=== PATIENT | female | born 1965 | race Caucasian/White ===

== ENCOUNTER 2018-01-28 05:16 | Emergency (ER) | payer SELFPAY ==
[~2018-01-28] VITALS: Ht 157.5 cm; Wt 98.0 kg
[~2018-01-28 05:16] MED LIST: ALEVE220 MG OR; CIPRO500 MG OR; DEPAKOTE ER500 MG OR; LISINOPRIL5 MG PO; METHYLPRED4 M1 OR; MULTI VIT OR; MULTIVITAMI1 PO; PRILOSEC OTC20 MG OR; PROTONIX20 MG OR; RANITIDINE150 M1 OR; ZOFRAN ODT8 MG SL
[2018-01-28 06:08] LABS: HEMATOCRIT 43.2 % (37.0-47.0); HEMOGLOBIN 14.7 g/dl (12.0-16.0); IMMATURE GRANULOCYTES 0.3 % (0.0-5.0); MEAN CELL VOLUME 89.1 fL CALC (80.0-100.0); MEAN CORPUSCULAR HGB 30.3 pG CALC (26.0-32.0); NEUT# 5.17 thou/uL (2.00-7.15); RED BLOOD COUNT 4.85 mill/uL (4.20-5.60); RED CELL DISTRI WIDTH 13.2 % (11.5-15.5)
[2018-01-28 06:19] LABS: ALKALINE PHOSPHATASE 74 u/l (38-126); ANION GAP 14 (6-22 (CALC)); BUN 18 mg/dL (7-17); BUN/CREATININE RATIO 29 (12-20 (CALC)); CARBON DIOXIDE 28 mmol/l (22-30); CHLORIDE 105 mmol/l (95-108); CREATININE 0.6 mg/dL (0.5-1.0); GFR > 60 ML/MIN (>=60 (CALC)); GFR FOR AFR.AMER. > 60 ML/MIN (>=60 (CALC)); POTASSIUM 4.3 mmol/l (3.5-5.1); SGOT/AST 19 u/l (14-36); SODIUM 142 mmol/l (137-146); TOTAL PROTEIN 7.4 g/dL (6.3-8.2)
[2018-01-28 06:31] LABS: MYOGLOBIN 21 ng/mL (0 - 62)
[2018-01-28] MEDS ORDERED: MECLIZINE25 MG PO (06:52)
[2018-01-28 06:55] VITALS: BP 120/58
== END 2018-01-28 07:15 | disposition home or self-care (01) | DRG 149 ==
LOC: ED 05:16
PROVIDERS: Family Medicine
DX: H83.01 Labyrinthitis, right ear (principal); G40.909 Epilepsy, unspecified, not intractable, without status epilepticus